=== PATIENT | female | born 1965 | race Caucasian/White ===

== ENCOUNTER → 2020-12-29 | Outpatient (CLI) | payer BC ==
[~2020-12-29] MED LIST: CATAPRES 0.1MG0.1 MG PO
[2020-12-29 09:16] LABS: HEMOGLOBIN 15.3 gm/dl (12.3-15.3); RED BLOOD COUNT 4.38 M/UL (4.00-5.10); WHITE BLOOD COUNT 5.8 K/UL (4.5-11.0)
[2020-12-29 11:16] LABS: BUN/CREATININE RATIO 16 (0-10)
== END ==
LOC: LAB 08:48
PROVIDERS: Nurse Practitioner Family
DX: E55.9 Vitamin D deficiency, unspecified (principal); I10 Essential (primary) hypertension; Z12.11 Encounter for screening for malignant neoplasm of colon
CPT/HCPCS: 36415; 80053; 80061; 85025

== ENCOUNTER → 2021-01-10 | Outpatient (CLI) | payer BC | LOC: LAB 08:52 | DX: R73.09 Other abnormal glucose (principal) | CPT/HCPCS: 36415; 83036 ==

== ENCOUNTER → 2021-01-13 | Outpatient (CLI) | payer BC | LOC: MAMO 07:47 | DX: Z12.31 Encounter for screening mammogram for malignant neoplasm of breast (principal) | CPT/HCPCS: 77063; 77067 ==

== ENCOUNTER → 2021-01-17 | Outpatient (CLI) | payer BC | LOC: HEART 5 14:03 | DX: M79.661 Pain in right lower leg (principal) ==

== ENCOUNTER → 2021-04-15 | Outpatient (CLI) | payer BC ==
[2021-04-15 07:46] LABS: HEMOGLOBIN 15.3 gm/dl (12.3-15.3); RED BLOOD COUNT 4.52 M/UL (4.00-5.10); WHITE BLOOD COUNT 4.8 K/UL (4.5-11.0)
[2021-04-15 08:16] LABS: BUN/CREATININE RATIO 21 (0-10)
== END ==
LOC: LAB 06:57
PROVIDERS: Nurse Practitioner Family
DX: E11.9 Type 2 diabetes mellitus without complications (principal); E55.9 Vitamin D deficiency, unspecified; I10 Essential (primary) hypertension
CPT/HCPCS: 80053; 80061; 83036; 85025

== ENCOUNTER → 2021-12-19 | Outpatient (CLI) | payer BC ==
[2021-12-19 07:18] LABS: HEMOGLOBIN 14.9 gm/dl (12.3-15.3); RED BLOOD COUNT 4.38 M/UL (4.00-5.10); WHITE BLOOD COUNT 4.9 K/UL (4.5-11.0)
[2021-12-19 07:53] LABS: BUN/CREATININE RATIO 26 (0-10)
[2021-12-20 07:12] LABS: ESTIM. AVG GLU (EAG) 111 mg/dL (.); HEMOGLOBIN A1C 5.5 % (4.8-5.6)
[2021-12-20 08:14] LABS: CHOLESTEROL, TOTAL 194 mg/dL (100-199); HDL CHOLESTEROL 67 mg/dL (>39); LDL CHOLESTEROL CALC 117 mg/dL (0-99); LDL/HDL RATIO 1.7 ratio (0.0-3.2); T. CHOL/HDL RATIO 2.9 ratio (0.0-4.4); TRIGLYCERIDES 51 mg/dL (0-149)
[2021-12-20 10:14] LABS: CREATININE, URINE 19.4 mg/dL (Not Estab.); MICROALB/CREAT RATIO <15 (0-29)
== END ==
LOC: LAB 06:56
PROVIDERS: Nurse Practitioner Family
DX: E11.9 Type 2 diabetes mellitus without complications (principal); E55.9 Vitamin D deficiency, unspecified; I10 Essential (primary) hypertension
CPT/HCPCS: 36415; 80053; 80061; 82043; 82570; 83036; 85025